=== PATIENT | female | born 1955 | race Hispanic/Latino ===

== ENCOUNTER → 2017-08-02 | Outpatient (CLI) | payer OTHER ==
--- NOTE | 2017-08-02 10:20 | Diagnostic Imaging Report ---
PROCEDURE: CT ABDOMEN AND PELVIS WITHOUT CONTRAST TECHNIQUE: The abdomen and pelvis were scanned utilizing a multidetector helical scanner from the diaphragm to the lesser trochanter. No oral or intravenous contrast was administered per renal stone protocol. Coronal and sagittal multiplanar reformations were obtained. COMPARISON: CT abdomen and pelvis with contrast 04/12/2016. INDICATIONS: Calculus of kidney FINDINGS: ABSENCE OF INTRAVENOUS CONTRAST DECREASES SENSITIVITY FOR DETECTION OF FOCAL LESIONS AND VASCULAR PATHOLOGY. LOWER THORAX: Linear opacity compatible with subsegmental atelectasis in the dependent lower lobes.. HEPATOBILIARY: No focal hepatic lesions. No biliary ductal dilatation. SPLEEN: No splenomegaly. PANCREAS: No focal masses or ductal dilatation. ADRENALS: No adrenal nodules. KIDNEYS/URETERS: 2.4 cm cyst in the upper pole of the right kidney is unchanged. 5.3 cm simple cyst projecting exophytically from the lower pole of the right kidney has marginally increased in size relative to 04/12/2016. Punctate calcification lies along the dependent portion of the upper pole cyst. No renal, ureteral, or bladder calculi. J-shaped left ureter is again noted. No additional renal mass lesions. PELVIC ORGANS/BLADDER: Urinary bladder is unremarkable. Uterus is not identified and has presumably been removed. No adnexal mass. PERITONEUM / RETROPERITONEUM: No free air or fluid. LYMPH NODES: No pelvic sidewall, retroperitoneal, or mesenteric lymphadenopathy. VESSELS: Atherosclerotic calcification of the abdominal aorta and major branch vessels without aneurysmal dilatation. Evaluation is otherwise limited in the absence of intravenous contrast. Retroaortic left renal vein. GI TRACT: The large bowel shows no gross distention or wall thickening. The appendix is normal. No small bowel dilatation to suggest obstruction. BONES AND SOFT TISSUES: No focal soft tissue abnormalities. Postsurgical changes of the anterior abdominal wall. No osseous destructive lesions. IMPRESSION: Punctate calcification in the right kidney may lie within the dependent portion of a stable renal cyst. Location in the renal collecting system is felt to be less likely based on peripheral location. Otherwise no CT evidence of urolithiasis. Marginal interval increase in size of a simple exophytic right lower pole renal cyst. Atherosclerotic vascular disease. Dictated by: Marco Antonio Claros M.D. on 08/02/2017 at 10:20 Electronically approved by: Marco Antonio Claros M.D. on 08/02/2017 at 10:20
== END ==
LOC: CT 08:24
PROVIDERS: ATTEND Urology
DX: N20.0 Calculus of kidney (principal); N28.1 Cyst of kidney, acquired
CPT/HCPCS: 74176